=== PATIENT | female | born 1945 | race Caucasian/White ===

== ENCOUNTER 2016-12-24 19:09 | Emergency (ER) | payer MEDICARE ==
[~2016-12-24 19:09] MED LIST: ISOVUE-370 76%-LOCM 1 ML ONE
[2016-12-24 19:38] LABS: #Basophils 0.1 thou/uL (0.0-0.2); #Eosinphils 0.3 thou/uL (0.0-0.7); #Lymphocytes 2.8 thou/uL (1.20-3.40); #Monocytes 0.4 thou/uL (0.11-0.59); #Neutrophils 2.9 thou/uL (1.40-6.50); %Basophils 1.6 % (0.0-1.0); %Eosinophils 4.3 % (0.0-10.0); %Lymphocytes 43.3 % (21.0-51.0); Hematocrit 39.8 % (36.0-47.0); Mean Platelet Volume 7.5 fL (7.4-10.4); Red Blood Cell (RBC) Count 4.21 mill/uL (4.20-5.40); White Blood Cell (WBC) Count 6.4 thou/uL (4.8-10.8)
[2016-12-24 20:01] LABS: ALT (SGPT) 10 U/L (8-55); AST (SGOT) 14 U/L (5-34); Alkaline Phosphatase 83 U/L (40-150); Anion Gap 12 mmol/L (10-20); BUN (Urea Nitrogen) 20 mg/dL (9.8-20.1); Bilirubin, Total 0.3 mg/dL (0.2-1.2); Calc. Creatinine Clearance 0 mL/min (70-130); Carbon Dioxide 24 mmol/L (23-31); Chloride 108 mmol/L (98-107); Estimated GFR-MDRD 56; Lipase 16 U/L (8-78); Protein, Total 6.9 g/dL (6.0-8.3)
[2016-12-24 20:11] LABS: Troponin I Less than 0.010 ng/mL (< 0.028)
--- NOTE | 2016-12-24 22:29 | CT ---
CT CHEST WITH IV CONTRAST CT ABDOMEN AND PELVIS WITH IV CONTRAST 12/24/16 HISTORY: Kicked by a horse. Chest injury. Abdomen and pelvis injury. FINDINGS: There is no evidence of pneumothorax or mediastinal hematoma. No displaced rib fractures are apparen t. Hiatal hernia is noted. There is calcifications throughout the arterial structures. Bovine origin of the great vessels from the aortic arch is apparent. Urinary bladder is unremarkable. A 0.3 cm calculus is present within a nondilated calyx in the left kidney. No free fluid is apparent. The solid organs are intact. IMPRESSION: 1. No acute traumatic injury is demonstrated. 2. Atherosclerosis. 3. Hiatal hernia. 4. Small nonobstructing left renal calculus. POS: [facility]
[2016-12-24 22:45] LABS: Bilirubin Negative (Negative); Blood, Urine Small (Negative); Glucose, Urine (Dipstick) Negative (Negative); Ketone, Urine Negative (Negative); Nitrite Positive (Negative); Protein, Urine (Dipstick) Negative (Neg-Trace); Urobilinogen 0.2 mg/dL (0.2-1.0)
[2016-12-24 22:47] LABS: Bacteria/HPF 4+ HPF (None Seen); Squamous Epithelial 0-3 HPF (0-3)
[2016-12-24 22:49] LABS: Hyaline Casts/LPF 7-10 HYALINE CAST LPF (0-3 Hyaline)
== END 2016-12-24 23:19 | disposition home or self-care (01) ==
LOC: ERS 19:09
DX: S30.1XXA Contusion of abdominal wall, initial encounter (principal); N39.0 Urinary tract infection, site not specified; F32.9 Major depressive disorder, single episode, unspecified; J44.9 Chronic obstructive pulmonary disease, unspecified; Z79.899 Other long term (current) drug therapy; W55.12XA Struck by horse, initial encounter
CPT/HCPCS: 36415; 71260; 74177; 80053; 81003; 81015; 82150; 82553; 83690; 84484; 85025; 87086; 87186